=== PATIENT | female | born 1990 | race Caucasian/White ===

== ENCOUNTER 2018-07-19 09:46 | Emergency (ER) | payer OTHER ==
[2018-07-19 09:55] VITALS: BP 105/64; PULSE 105; TEMP 99.1; BMI 24.4
[2018-07-19] MEDS ORDERED: IBUPROFEN 600 MG TABLET (FP) PO ONE ×2 (10:25→10:32)
--- NOTE | 2018-07-19 10:36 | PDOC ---
History of Present Illness - General Chief Complaint: Cold Symptoms Stated Complaint: R/O FLU Time Seen by Provider: 07/19/18 10:11 History Source: Patient Exam Limitations: No Limitations - History of Present Illness Initial Comments: 07/19/18 10:33 27 year old female with no medical or surgical history presents for chills, fever bodyaches and malaise since Sunday. STates she was exposed to flu because her sister took care of a student that was positive flu and she has symptoms since then. Denies coughing Timing/Duration: reports: week Severity: reports: mild Possible Cause: Yes: illness exposure Modifying Factors: improves with: other Associated Symptoms: reports: cough, fever/chills, nasal congestion Aspirin Received prior to arrival: Yes: no aspirin today ASA Contraindications(Core Measure): No: Allergy Beta Hali Contraindications(Core Measure): Yes: Not Prescribed Beta Hali Given by EMS(Core Measure): No Beta Hali Taken at Home(Core Measure): No Beta Hali Not Indicated at this Time(Core Measure): No Past History - Travel Traveled outside of the country in the last 30 days: No Close contact w/someone who was outside of country & ill: No - Past Medical History Allergies/Adverse Reactions: Allergies Allergy/AdvReac Type Severity Reaction Status Date / Time No Known Allergies Allergy Verified 07/19/18 09:57 Home Medications: Ambulatory Orders Ibuprofen 600 mg PO TID #20 tablet 07/19/18 - Suicide/Smoking/Psychosocial Hx Smoking History: Never smoked Respiratory Specific PMHX - Complaint Specific PMHX Angina: No Pneumonia: No Pulmonary Embolus: No TB (Tuberculosis): No Review of Systems - Review of Systems Able to Perform ROS?: Yes Is the patient limited Tajik proficient: No Constitutional: Yes: Fever. No: Chills HEENTM: Yes: Nose Congestion Respiratory: Yes: Cough Cardiac (ROS): No: Lightheadedness, Palpitations ABD/GI: No: Constipated, Poor Appetite, Poor Fluid Intake, Abdominal cramping : No: See HPI, Incontinence, Urgency Integumentary: No: Erythema, Flushing Psychiatric: No: Stressors *Physical Exam - Vital Signs Last Vital Signs Temp Pulse Resp BP Pulse Ox 99.1 F 105 H 20 105/64 07/19/18 09:53 07/19/18 09:53 07/19/18 09:53 07/19/18 09:53 - Physical Exam General Appearance: Yes: Nourished, Appropriately Dressed. No: Apparent Distress HEENT: positive: Pharynx Normal. negative: Tonsillar Exudate, Tonsillar Erythema Neck: positive: Supple. 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 NML intact, Fully Oriented Moderate Sedation - Procedure Monitoring Vital Signs: Procedure Monitoring Vital Signs Temperature 99.1 F 07/19/18 09:53 Pulse Rate 105 H 07/19/18 09:53 Respiratory Rate 20 07/19/18 09:53 Blood Pressure 105/64 07/19/18 09:53 O2 Sat by Pulse Oximetry (%) Medical Decision Making - Medical Decision Making 07/19/18 10:36 27 year old female with no medical or surgical history presents for chills, fever bodyaches and malaise since Sunday Plan: influenza swab analgesia *DC/Admit/Observation/Transfer Diagnosis at time of Disposition: URI (upper respiratory infection) Qualifiers: URI type: unspecified viral URI Qualified Code(s): J06.9 - Acute upper respiratory infection, unspecified - Discharge Dispostion Disposition: HOME Condition at time of disposition: Good - Prescriptions Prescriptions: Ibuprofen 600 mg PO TID #20 tablet - Referrals - Patient Instructions Printed Discharge Instructions: How to Avoid a Cold or Flu Additional Instructions: Drink plenty fluids Rest May use cough syrup for coughing, return for worsening symptoms - Post Discharge Activity Forms/Work/School Notes: Back to Work
== END 2018-07-19 11:07 | disposition home or self-care (01) ==
LOC: JERFT 09:46
DX: J06.9 Acute upper respiratory infection, unspecified (principal)
CPT/HCPCS: 87804; 99281-25